=== PATIENT | male | born 1965 | race Caucasian/White ===

== ENCOUNTER 2018-11-27 05:52 | Emergency (ER) | payer SELFPAY ==
[2018-11-27] MEDS ORDERED: Ondansetron PF 4 MG/2 ML Vial ONE (06:30)
[2018-11-27] MEDS ORDERED: Morphine 4 MG/ML VIAL ONE (06:30)
[2018-11-27 06:33] LABS: #Basophils 0.1 thou/uL (0.0-0.2); #Eosinphils 0.3 thou/uL (0.0-0.7); #Lymphocytes 1.6 thou/uL (1.20-3.40); #Monocytes 0.9 thou/uL (0.11-0.59); #Neutrophils 8.2 thou/uL (1.40-6.50); %Basophils 0.8 % (0.0-1.0); %Eosinophils 2.7 % (0.0-10.0); %Lymphocytes 14.7 % (21.0-51.0); %Neutrophils 73.8 % (42.0-75.0); Hemoglobin 15.7 g/dL (14.0-18.0); Mean Corpuscular HGB CONC 34.7 g/dL (32.0-36.0); Mean Corpuscular Hemoglobin 30.2 pg (27.0-31.0); Mean Corpuscular Volume 86.8 fL (78.0-98.0); Mean Platelet Volume 8.2 fL (7.4-10.4); Platelet Count 234 thou/uL (130-400); Red Blood Cell (RBC) Count 5.22 mill/uL (4.70-6.10)
[2018-11-27 06:37] LABS: Bilirubin Negative (Negative); Blood, Urine Moderate (Negative); Clarity Clear (Clear); Glucose, Urine (Dipstick) Negative (Negative); Leukocyte Negative (Negative); Nitrite Negative (Negative); Protein, Urine (Dipstick) Trace mg/dL (Neg-Trace); Urobilinogen 0.2 mg/dL (Less than 2)
[2018-11-27 06:38] LABS: Bacteria/HPF None Seen HPF (None Seen); Mucous/LPF 1+ LPF (<2+); Squamous Epithelial 0-3 HPF (0-3); WBC/HPF None Seen HPF (0-3)
[2018-11-27 06:52] LABS: ALT (SGPT) 16 U/L (8-55); AST (SGOT) 13 U/L (5-34); Albumin 4.1 g/dL (3.5-5.0); Alkaline Phosphatase 88 U/L (40-110); Anion Gap 15 mmol/L (10-20); BUN (Urea Nitrogen) 18 mg/dL (8.4-25.7); Bilirubin, Total 0.5 mg/dL (0.2-1.2); Calc. Creatinine Clearance 0 mL/min (70-130); Carbon Dioxide 26 mmol/L (22-29); Chloride 102 mmol/L (98-107); Estimated GFR-MDRD 64; Globulin 3.4 g/dL (2.4-3.5); Glucose 122 mg/dL (70-105); Lipase 11 U/L (8-78); Potassium 3.6 mmol/L (3.5-5.1); Protein, Total 7.5 g/dL (6.0-8.3); Sodium 139 mmol/L (136-145)
--- NOTE | 2018-11-27 07:59 | CT ---
PRELIMINARY REPORT/[facility]/EMERGENCY AFTER HOURS PROCEDURE: PROCEDURE INFORMATION: Exam: CT Abdomen And Pelvis Without Contrast Exam date and time: 11/27/2018 6:28 AM Clinical history: 53 years old, male; Patient HX: History given with no apparent limitations. Patient reports sudden onset of his sharp abdominal pain at the lateral ruq 2 days ago. He reports it resolv ed then "after i drank a lot of water" after several hours, then recurred again tonight. He reports i t is already improving again now though. It feels like his previous kidney stone. He had n/v with thi s too, 2-3x total, with no blood in it. He denies any pain anywhere else, fever, diarrhea, or urine s ymptoms. He denies any other symptoms, complaints, or problems. TECHNIQUE: Imaging protocol: Computed tomography of the abdomen and pelvis without contrast. COMPARISON: No relevant prior studies available. FINDINGS: Liver: Normal. No mass. Gallbladder and bile ducts: Normal. No calcified stones. No ductal dilation. Pancreas: Normal. No ductal dilation. Spleen: Normal. No splenomegaly. Adrenals: Normal. No mass. Kidneys and ureters: Mild right obstructive uropathy secondary to a tiny 3 x 2 mm calculus within the internal bladder orifice of the distal right pelvic ureter, seen on images 72 through 74 of series 2 . A small nonobstructing calculus is additionally present in the mid-lower pole left kidney. There is a small 3.4 cm diameter hypodense mass in the lower pole lateral cortex right kidney. This has benign C T findings and is likely a Bosniak type I simple cyst. Stomach and bowel: A small sliding-type gastric hiatal hernia is present. Appendix: No evidence of appendicitis. Intraperitoneal space: Unremarkable. No free air. No significant fluid collection. Vasculature: Unremarkable. No abdominal aortic aneurysm. Lymph nodes: Unremarkable. No enlarged lymph nodes. Bladder: Unremarkable as visualized. Reproductive: Unremarkable as visualized. Bones/joints: Unremarkable. No acute fracture. Soft tissues: A small left inguinal hernia is present, containing fat only. IMPRESSION: 1. Mild right obstructive uropathy secondary to a tiny 3 x 2 mm calculus within the internal bladder orifice of the distal right pelvic ureter, seen on images 72 through 74 of series 2. 2. There is a small 3.4 cm diameter hypodense mass in the lower pole lateral cortex right kidney. Thi s has benign CT findings and is likely a Bosniak type I simple cyst. No further follow-up is recommen ded. Reference: Yvonne VARELA, Management of the Incidental Renal Mass on CT: A White Paper of the ACR Incident al Findings Committee, J Am Sheldon [facility]iol 2018. 3. A small sliding-type gastric hiatal hernia is present. 4. A small left inguinal hernia is present, containing fat only. Thank you for allowing us to participate in the care of your patient. Dictated and Authenticated by: Tyler Mcgee MD 11/27/2018 7:18 AM Central Time ([place] & [place]) FINAL REPORT ABDOMEN CT WITHOUT CONTRAST PELVIS CT WITOUT COTNRAST: HISTORY: Sharp abdominal pain, right upper quadrant. FINDINGS: Limited evaluation of the solid organs by the lack of IV contrast. Grossly, no acute solid organ abn ormality. There are small gallstones. No evidence of cholecystitis. Simple cyst emanates from the right renal cortex. There are nonobstructing calculi in the left intra renal collecting system. No evidence of obstructive uropathy. Mild dilatation of the right intra- a nd extrarenal collecting systems secondary to a past calculus that is now in the right aspect of the urinary bladder. Limited evaluation of the alimentary canal. No evidence of bowel obstruction. Normal-caliber append ix. Mild prominence of the urinary bladder mucosa. Correlate clinically. There is a 3-4 mm calculus in the right aspect of the urinary bladder. Left inguinal hernia is noted. IMPRESSION: 1. This report is in agreement with the preliminary report by [facility]. Mild right-side obstructive uro ciro secondary to calculus that is now in the right urinary bladder. 2. Right renal cyst. 3. Cholelithiasis without evidence of cholecystitis. Note, the initial report by [facility] stated that t here were no gallstones. This is, in fact, incorrect. This is in minimal disagreement with the prel iminary report by [facility]. POS: [facility]
== END 2018-11-27 07:35 | disposition home or self-care (01) ==
LOC: SCSER 05:52
DX: N20.0 Calculus of kidney (principal); F41.9 Anxiety disorder, unspecified; F32.9 Major depressive disorder, single episode, unspecified
CPT/HCPCS: 74176; 80053; 81003; 81015; 83690; 85025; 96361; 96374; 96375; J2270; J2405